=== PATIENT | female | born 1985 | race Caucasian/White ===

== ENCOUNTER 2016-10-20 18:16 | Emergency (ER) | payer OTHER ==
--- NOTE | 2016-10-20 19:00 | Emergency Department Record ---
History of Present Illness - General Chief Complaint: Dizziness Stated Complaint: POSS VERTIGO Time Seen by Provider: 10/20/16 18:46 Source: Patient Mode of Arrival: Ambulatory Limitations: No limitations - History of Present Illness Initial Comments: 30 yo female presents with dizziness that started this morning. She was in the shower and tilted her head back and developed the spinning sensation. No vision changes, no speech changes, no weakness, no numbness, no memory changes. She had similar vertigo 2 years ago that last on and off for 2 months. She followed 3-4 times with ENT prior to resolution. No nausea or vomiting. She has not seen a neurologist or ever had any head imaging. She has Factor V Leiden Deficiency. No history of clots. MD Complaint: Dizziness Onset/Timin -: Hour(s) Description: Difficulty walking, Lightheadedness, Off-balance History of Same: Yes History of Trauma: No Improves With: Nothing Worsens With: Movement, Position, Exertion Associated Symptoms: Ataxia, Other - Carmel Coma Scale Eye Response: (4) Open spontaneously Motor Response: (6) Obeys commands Verbal Response: (5) Oriented Dariel Total: 15 - Symptoms of Stroke Symptoms of stroke: Dizziness - Related Data Home Medications Medication Instructions Recorded Confirmed Last Taken Cholecalciferol (Vitamin D3) 5,000 units PO DAILY 09/20/16 10/20/16 10/20/16 [Vitamin D3] Dextroamphetamine/Amphetamine 25 mg PO DAILY 09/20/16 10/20/16 10/20/16 [Adderall] Sertraline HCl [Zoloft] 100 mg PO DAILY 09/20/16 10/20/16 10/20/16 Previous Rx's Medication Instructions Recorded Diazepam [Valium] 10 mg PO QHS #15 tablet 10/20/16 Meclizine HCl [Antivert] 25 mg PO Q8H #21 tablet 10/20/16 Methylprednisolone [Medrol Dose 4 mg PO DAILY #1 tab.ds.pk 10/20/16 Pack] Allergies Allergy/AdvReac Type Severity Reaction Status Date / Time amoxicillin Allergy RASH Verified 09/20/16 10:35 Travel Screening - Travel/Exposure Within Last 30 Days Have you traveled within the last 30 days?: No - Travel/Exposure Within Last Year Have you traveled outside the [place] in the last year?: No - Additonal Travel Details Have you been exposed to anyone with a communicable illness?: No - Travel Symptoms Symptom Screening: None Review of Systems Constitutional: Denies: Chills, Fever, Malaise, Night sweats, Weakness Eyes: Denies: Eye discharge, Eye pain, Photophobia, Vision change ENT: Denies: Congestion, Ear pain, Epistaxis, Hearing loss Respiratory: Denies: Cough, Dyspnea, Hemoptysis, Stridor, Wheezes Cardiovascular: Denies: Chest pain, Palpitations, Syncope Endocrine: Denies: Fatigue Gastrointestinal: Denies: Abdominal pain, Diarrhea, Nausea, Vomiting Genitourinary: Denies: Dysuria, Frequency, Retention, Urgency Musculoskeletal: Denies: Arthralgia, Back pain, Joint swelling, Myalgia, Neck pain Skin: Denies: Bruising, Change in color, Rash Neurological: Reports: Vertigo. Denies: Abnormal gait, Confusion, Headache, Numbness, Paresthesias, Seizure, Tingling, Tremors, Weakness Psychiatric: Denies: Anxiety Hematological/Lymphatic: Denies: Blood Clots, Easy bleeding, Easy bruising, Swollen glands Past Medical History - SOCIAL HISTORY Smoking Status: Never smoker Alcohol Use: None Drug Use: None - RESPIRATORY Hx Respiratory Disorders: No - CARDIOVASCULAR Hx Cardio Disorders: No - NEURO Hx Neuro Disorders: No - GI Hx GI Disorders: No - Hx Genitourinary Disorders: No - ENDOCRINE Hx Diabetes: No Hx Thyroid Disease: No - MUSCULOSKELETAL Hx Musculoskeletal Disorders: No - PSYCH Hx Depression: Yes - HEMATOLOGY/ONCOLOGY Hx Anemia: No Hx Blood Disorders: No Hx Bruising: No Hx Clotting Problems: Yes (factor 5) Family Medical History Any Significant Family History?: No Hx Cancer: Grandparents Hx Diabetes: Grandparents Hx Heart Disease: Grandparents Hx HTN: Grandparents Hx Liver Disease: Mother Physical Exam - General General Appearance: Alert, Oriented x3, Cooperative, No acute distress Limitations: No limitations - Head Head exam: Atraumatic, Normocephalic, Normal inspection Head exam detail: negative: Abrasion, Contusion - Eye Eye exam: Normal appearance, PERRL, EOMI, Nystagmus (rapid to the right, fatigues quickly within a few beats). negative: Conjunctival injection Pupils: Normal accommodation. negative: Irregular, Miosis, Mydriatic, Unequal - ENT ENT exam: Normal exam, Mucous membranes moist, Normal orophraynx, TM's normal bilaterally Ear exam: Normal external inspection. negative: External canal tenderness Nasal Exam: Normal inspection. negative: Discharge, Sinus tenderness Mouth exam: Normal external inspection, Tongue normal Teeth exam: Normal inspection. negative: Dental caries Throat exam: Normal inspection. negative: Tonsillar erythema, Tonsillar exudate - Neck Neck exam: Normal inspection, Full ROM. negative: Lymphadenopathy, Tenderness - Respiratory Respiratory exam: Normal lung sounds bilaterally. negative: Respiratory distress - Cardiovascular Cardiovascular Exam: Regular rate, Normal rhythm, Normal heart sounds - Rectal Rectal exam: Deferred - exam: Deferred - Extremities Extremities exam: Normal inspection, Full ROM, Normal capillary refill. negative: Tenderness - Back Back exam: Reports: Normal inspection, Full ROM. Denies: Muscle spasm, Rash noted, Tenderness - Neurological Neurological exam: Alert, CN II-XII intact, Normal gait, Oriented X3, Reflexes normal, Other (Normal Rhomberg, Normal ALLEN, Normal FTN, Normal tracking my finger bilateral). negative: Abnormal gait, Altered, Motor sensory deficit - Psychiatric Psychiatric exam: Normal affect, Normal mood. negative: Agitated, Anxious - Skin Skin exam: Dry, Intact, Normal color, Warm. negative: Cyanosis, Diaphoretic, Erythema Course Vital Signs 10/20/16 18:28 Temperature 98.2 F Pulse Rate 90 Respiratory 16 Rate Blood Pressure 112/82 Pulse Ox 99 - Reevaluation(s) Reevaluation #1: The patient was seen and examined her neuro examination was intact as tested given her second episode in her life with dizziness and room spinning with FVL def and no history of imaging I discussed risks and benefits fo CT. She agrees with CT. 10/20/16 19:07 Reevaluation #2: I reviewed the CT scan, awaiting for the final read. 10/20/16 19:[address] read was negative We discussed home care, medications, and follow up place We discussed close outpatient follow up as well. 10/21/16 04:11 Disposition Disposition: Discharge Clinical Impression: Vertigo Disposition: Home, Self-Care Condition: (1) Good Instructions: Vertigo (ED) Additional Instructions: Call Dr Evans tomorrow for close follow up Call your ENT again as well for close follow up You may need additional testing such as an MRI, this can be arranged through your doctor Prescriptions: Diazepam [Valium] 10 mg PO QHS #15 tablet Meclizine HCl [Antivert] 25 mg PO Q8H #21 tablet Methylprednisolone [Medrol Dose Pack] 4 mg PO DAILY #1 tab.ds.pk Forms: Patient Portal Access Time of Disposition: 19:48
== END 2016-10-20 19:52 | disposition home or self-care (01) ==
LOC: ER 18:16
DX: R42 Dizziness and giddiness (principal); R27.0 Ataxia, unspecified; D68.51 Activated protein C resistance
CPT/HCPCS: 70450; 99283